=== PATIENT | male | born 1960 | race Caucasian/White ===

== ENCOUNTER → 2017-03-29 | Outpatient (CLI) | payer OTHER ==
--- NOTE | 2017-03-29 11:03 | XR ---
EXAMINATION TYPE: XR chest 2V DATE OF EXAM: 03/29/2017 COMPARISON: 03/02/2017 TECHNIQUE: PA and lateral views submitted. HISTORY: Follow-up pneumonia FINDINGS: The lungs are clear and there is no pneumothorax, pleural effusion, or focal pneumonia. Chronic rib deformity on the right noted. Hypertrophic change of the spine and mild hyperinflation of the lungs. IMPRESSION: 1. Interval resolution of right upper lobe pneumonia.
== END | disposition home or self-care (01) ==
LOC: RADXRMAIN 09:40
PROVIDERS: ATTEND Family Medicine
DX: J18.9 Pneumonia, unspecified organism (principal)
CPT/HCPCS: 71020

== ENCOUNTER → 2023-04-15 | Outpatient (CLI) | payer OTHER ==
--- NOTE | 2023-04-15 10:57 | MR ---
EXAMINATION TYPE: MR lumbar spine wo con DATE OF EXAM: 04/15/2023 COMPARISON: NONE HISTORY: LOWER BACK PAIN X 1 WEEK TECHNIQUE: T1 and T2 axial and sagittal images of the lumbar spine are submitted. FINDINGS: There is no abnormal signal seen within the visualized spinal cord or paraspinal soft tissu es. There is a nonspecific nodularity in the left adrenal gland most likely on the basis of benign ad enoma. There is degenerative disc disease with disc desiccation L3-4, L4-5 and L5-S1. At L1-2 there is a small central disc protrusion. Mild effacement of thecal sac. No foraminal enlarge ment or canal stenosis. At L2-3 there is a broad-based disc bulging mildly flattening the thecal sac but no canal stenosis. H ypertrophy of the facet joints. Mild bilateral foraminal encroachment. At L3-4 there is a focal central disc herniation with extrusion. Disc material extends posterior to t he upper margin L4 vertebral segment. Compression of the thecal sac. Hypertrophy of the facet joints mild bilateral foraminal approach. At L4-5 there is degenerative disc disease with broad-based disc herniation subligamentous. There is facet arthropathy and ligamentum flavum hypertrophy with mild central stenosis and mild bilateral for aminal. At L5-S1 there is annular tear but no discrete herniation. Neural foramina patent. There is facet art hropathy. No canal stenosis. IMPRESSION: 1. At L3-4 there is a focal central disc herniation with extrusion. Disc material extends posterior t o the upper margin of the L4 vertebral segment. Compression of the thecal sac. 2. Small central disc protrusion at L1-L2. 3. Broad-based disc herniation L4-L5 with hypertrophic changes leading to mild central stenosis and b ilateral foraminal encroachment.
== END | disposition home or self-care (01) ==
LOC: RADMRIMAIN 08:30
PROVIDERS: ATTEND Physical Medicine & Rehabilitation
DX: S32.030S Wedge compression fracture of third lumbar vertebra, sequela (principal); M48.062 Spinal stenosis, lumbar region with neurogenic claudication; M41.26 Other idiopathic scoliosis, lumbar region; M47.26 Other spondylosis with radiculopathy, lumbar region; M47.27 Other spondylosis with radiculopathy, lumbosacral region; M99.73 Connective tissue and disc stenosis of intervertebral foramina of lumbar region
CPT/HCPCS: 72148